=== PATIENT | female | born 1965 | race Caucasian/White ===

== ENCOUNTER 2025-05-14 07:27 | Outpatient (CLI) | payer OTHER, SELFPAY ==
--- NOTE | 2025-05-14 07:45 | CRLHL7_ITS ---
For Patients: As a result of the Century Cures Act, medical imaging exams and procedure reports are released immediately into your electronic medical record. You may view this report before your referring provider. If you have questions, please contact your health care provider. INDICATION: BILATERAL SCREENING MAMMOGRAM, ASYMPTOMATIC 59 Y/O FEMALE COMPARISON: 07/22/2023, 09/21/2021, 06/25/2018 TECHNIQUE: Digital mammogram in CC and MLO projections including computer-aided detection (CAD) and tomosynthesis. BREAST COMPOSITION: There are scattered areas of fibroglandular density. FINDINGS: No suspicious findings. ASSESSMENT: BI-RADS 1 Negative RECOMMENDATION: Annual screening mammogram. A lay language report of this examination will be provided to the patient. Dictated by: Roberth Palacios MD @ 05/21/2025 09:55:45 (Electronically Signed)
== END 2025-05-14 07:28 | disposition home or self-care (01) ==
LOC: MAMMO 07:28
PROVIDERS: Visit Provider Physician Assistant
DX: Z12.31 Encounter for screening mammogram for malignant neoplasm of breast (principal)
CPT/HCPCS: 77063; 77067

== ENCOUNTER 2025-06-08 08:43 | Outpatient (CLI) | payer OTHER, SELFPAY | END 2025-06-08 08:44 | disposition home or self-care (01) | PROVIDERS: Visit Provider Physician Assistant | DX: F52.0 Hypoactive sexual desire disorder (principal); R53.83 Other fatigue; E78.5 Hyperlipidemia, unspecified; E55.9 Vitamin D deficiency, unspecified | CPT/HCPCS: 80053; 80061; 82306; 84270; 84402; 84403; 84439; 84443 ==